=== PATIENT | male | born 1975 | race Caucasian/White ===

== ENCOUNTER 2021-04-20 14:43 | Emergency (ER) | payer SELFPAY ==
--- NOTE | 2021-04-20 15:15 | Emergency Department Report ---
ED GI Bleed HPI - General Chief complaint: GI Bleed Stated complaint: RECTAL BLEEDING Time Seen by Provider: 04/20/21 15:00 Source: patient Mode of arrival: Ambulatory Limitations: No Limitations - History of Present Illness Initial comments: 45-year-old male presents to ED with complaint of rectal pain and rectal bleeding. Patient states symptoms began approximately 3 months ago. He reports intermittent rectal bleeding with bowel movements. Patient reports constipation and having to strain with bowel movements. He states 2 weeks ago he was seen by his PCP and was given a prescription for medications for constipation and hemorrhoids. Patient states his constipation has improved, however he is having increased rectal pain. He reports continued bleeding with bowel movements. Patient states he has had bright red blood, denies any dark black stools. He denies any abdominal pain. MD complaint: gross hematochezia -: month(s) (3) Severity scale (0 -10): 5 Consistency: intermittent Improves with: none Worsens with: bowel movement Associated Symptoms: denies: abdominal pain, nausea, vomiting, syncope, weakness - Related Data Previous Rx's Medication Instructions Recorded Last Taken Type Diphenoxylate/Atropine [Lomotil] 1 tab PO Q4-6H PRN #14 tablet 01/02/14 Unknown Rx Promethazine [Phenergan] 25 mg PO Q6H PRN #14 tablet 01/02/14 Unknown Rx Hydrocortisone Acetate [Proctocort 30 mg RC BID 7 Days #14 supp.rect 04/20/21 Unknown Rx SUPPOS] Allergies Allergy/AdvReac Type Severity Reaction Status Date / Time No Known Allergies Allergy Unverified 01/02/14 12:40 ED Review of Systems ROS: Stated complaint: RECTAL BLEEDING Other details as noted in HPI Comment: All other systems reviewed and negative Constitutional: denies: fever Gastrointestinal: constipation, hematochezia. denies: abdominal pain, nausea, vomiting ED Past Medical Hx - Past Medical History Previous Medical History?: No - Surgical History Past Surgical History?: No - Social History Smoking Status: Never Smoker Substance Use Type: Alcohol - Medications Home Medications: Home Medications Medication Instructions Recorded Confirmed Last Taken Type Diphenoxylate/Atropine [Lomotil] 1 tab PO Q4-6H PRN #14 tablet 01/02/14 Unknown Rx Promethazine [Phenergan] 25 mg PO Q6H PRN #14 tablet 01/02/14 Unknown Rx Hydrocortisone Acetate [Proctocort 30 mg RC BID 7 Days #14 supp.rect 04/20/21 Unknown Rx SUPPOS] ED Physical Exam - General Limitations: No Limitations General appearance: alert, in no apparent distress - Head Head exam: Present: atraumatic, normocephalic - Eye Eye exam: Present: normal appearance, EOMI - ENT ENT exam: Present: mucous membranes moist - Neck Neck exam: Present: normal inspection - Respiratory Respiratory exam: Present: normal lung sounds bilaterally. Absent: respiratory distress - Cardiovascular Cardiovascular Exam: Present: regular rate, normal rhythm - GI/Abdominal GI/Abdominal exam: Present: soft. Absent: distended, tenderness - Rectal Rectal exam: Present: heme (+) stool, hemorrhoids, tenderness - Extremities Exam Extremities exam: Present: normal inspection - Neurological Exam Neurological exam: Present: alert, oriented X3 - Psychiatric Psychiatric exam: Present: normal affect, normal mood - Skin Skin exam: Present: warm, dry, intact, normal color ED Course Vital Signs 04/20/21 04/20/21 04/20/21 14:56 17:20 18:40 Temperature 99.4 F 98.3 F 98.3 F Pulse Rate 95 H 94 H 94 H Respiratory 20 18 18 Rate Blood Pressure 104/90 108/73 108/73 [Right] O2 Sat by Pulse 98 100 100 Oximetry ED Medical Decision Making - Lab Data Result diagrams: 04/20/21 15:23 04/20/21 16:38 - Medical Decision Making 45-year-old male with rectal planing bleeding, intermittent times last 3 months. Blood pressure seems to run low-normal compared to ED visit from 2013 when blood pressure was 106/66. Blood pressure stable today. Patient is not tachycardic. Hemoglobin is 12. Patient had no active bleeding on rectal exam, however he was guaiac positive with a small amount of blood present. Patient will be discharged with prescriptions. Outpatient follow-up with GI advised. Return precautions given. - Differential Diagnosis Anemia, hemorrhoids, malignancy Critical care attestation.: If time is entered above; I have spent that time in minutes in the direct care of this critically ill patient, excluding procedure time. ED Disposition Clinical Impression: Rectal bleeding, Rectal pain Disposition: HOME / SELF CARE / HOMELESS Is pt being admited?: No Condition: Stable Instructions: Hemorrhoids, [id number], Rectal Bleeding, [id number] Prescriptions: Hydrocortisone Acetate [Proctocort SUPPOS] 30 mg RC BID 7 Days #14 supp.rect Referrals: [facility] [Provider Group] - 3-5 Days Forms: Accompanied Note Time of Disposition: 17:23
[2021-04-20 16:10] LABS: INR 1.03 (0.87-1.13)
[2021-04-20 16:11] LABS: Hematocrit 37.5 % (35.5-45.6); Hemoglobin 12.5 gm/dl (11.8-15.2); Mean Corpuscular HGB Conc 33 % (32-34); Mean Corpuscular Volume 83 fl (84-94); Partial Thromboplastin Time 37.1 Sec. (24.2-36.6); Red Blood Count 4.51 M/mm3 (3.65-5.03); Red Cell Distribution Width 13.9 % (13.2-15.2)
[2021-04-20 16:12] LABS: Blood Urea Nitrogen 12 mg/dL (9-20); Calcium 8.8 mg/dL (8.4-10.2); Hemolysis Index 369
[2021-04-20 16:13] LABS: BUN/Creatinine Ratio 17
[2021-04-20 16:27] LABS: Platelet Count 176 K/mm3 (140-440)
[2021-04-20 17:21] VITALS: BP 108/73
[2021-04-20 18:36] LABS: Total Cells Counted 100
[2021-04-20 18:37] LABS: Anisocytosis Few; Band Neutrophils # (Manual) 0.7 K/mm3
== END 2021-04-20 17:37 | disposition home or self-care (01) ==
LOC: ED 14:43
DX: K62.5 Hemorrhage of anus and rectum (principal); Z72.89 Other problems related to lifestyle; Z79.899 Other long term (current) drug therapy
CPT/HCPCS: 36415; 80048; 84132; 85007; 85025; 85610; 85730; 99283